=== PATIENT | female | born 1975 | race Caucasian/White ===

== ENCOUNTER → 2016-10-21 | Day surgery (SDC) | payer BC, OTHER ==
--- NOTE | 2016-10-20 18:38 | Pre-op HX & Phy Repo 2 SIG ---
DATE OF ENDOSCOPY: 10/21/2016 REASON FOR EVALUATION: The patient is scheduled for Westfall continent ileostomy pouch endoscopy on 10/21/2016 as an outpatient. HISTORY OF PRESENT ILLNESS: The patient is a 41-year-old female in overall good health who has previously undergone proctocolectomy for granulomatous colitis and subsequently creation of a Westfall continent ileostomy with several revisions. Her last procedure was in May 2013 to repair a recurrent parastomal hernia with mesh. For the past several months, the patient has had intermittent incontinence, but it is gradually increasing. She started Flagyl recently for possible pouchitis with some improvement. She has no difficulty with intubation of her pouch and intubates approximately every three to four hours during the day. OPERATIONS: See complete list at the end of this dictation. MEDICATIONS: Probiotics and control pills. ALLERGIES: Dilaudid causes severe itching. PHYSICAL EXAMINATION: On physical exam, the patient is 5 foot 8 inches and approximately 170 pounds. She is arriving from out of town, will be examined upon arrival, and dictated separately. IMPRESSION: 1. Malfunctioning Westfall continent ileostomy with incontinence, but no difficulty with intubation. 2. History of granulomatous colitis. 3. Status post multiple abdominal operations. 3.1. Proctocolectomy and Tracy ileostomy in 2004. 3.2. Westfall continent ileostomy in August 2011. 3.3. Repair of incisional hernia at original ileostomy site in April 2012 3.4. Laparotomy with revision of Westfall pouch access segment in depth November 2012 3.5. Repair of Westfall continent ileostomy parastomal hernia in February 2013 3.6. Laparotomy with revision of partially slipped Westfall pouch nipple valve March 2013 3.7. Repair of recurrent Westfall pouch parastomal hernia with collagen matrix mesh on 06/09/2013. PLAN: The patient is going to undergo endoscopy of her Westfall continent ileostomy pouch, which will not require any anesthesia or sedation. She has been through endoscopy before and understands the procedure. This will determine the cause of her incontinence and thereafter the treatment. Jeff Wong M.D. DR: MIC JOB#: [id number] CC: INES
[~2016-10-21] VITALS: Ht 177.8 cm; Wt 86.2 kg
[~2016-10-21] MED LIST: AUGMENTIN 875-1 EAC1 ORAL; IBUPROFEN800 MG PO; NKM; NORETHINDRONE0.35 MG ORAL; POTASSIUM CHLO10 ME2 PO; SODIUM CHLORIDE1 G1 PO; XANAX0.5 MG ORAL; [UNRECOGNIZED DRUG - OTHER] PO
[2016-10-21 11:14] VITALS: BP 127/74
--- NOTE | 2016-10-21 11:26 | Pre-Procedure Note/Attestation ---
Pre-Procedure Note/Attestation Complete Prior to Procedure Planned Procedure: not applicable Procedure Narrative: Westfall Continent Ileostomy pouch endoscopy Indications for Procedure Pre-Operative Diagnosis: Malfunctioning Westfall continent ileostomy with incontinence Attestation I attest that I discussed the nature of the procedure; its benefits; risks and complications; and alternatives (and the risks and benefits of such alternatives ), prior to the procedure, with the patient (or the patient's legal maintenance representative). I attest that, if there was a reasonable possibility of needing a blood transfusion, the patient (or the patient's legal maintenance representative) was given the [facility] standardized written summary, pursuant to the [place] Blood Safety Act ([place] Health and Safety Code # 1645, as amended). I attest that I re-evaluated the patient just prior to the surgery and that there has been no change in the patient's H&P, except as documented below: none MASON DANG Oct 21, 2016 11:26
--- NOTE | 2016-10-21 12:16 | Brief Operative Note ---
Immediate Post Operative Note Operative Note Pre-op Diagnosis: Malfunctioning Westfall continent ileostomy with incontinence Procedure: Westfall continent ileostomy pouch endoscopy Post-op Diagnosis: partially slipped nipple valve Post-op Diagnosis: same as pre-op Findings: consistent w/pre-op dx studies Surgeon: nuha Anesthesia: other - none Specimen: none Complications: none Condition: stable Fluids: none Estimated Blood Loss: none Drains: none Implant(s) used?: MASON Acosta Oct 21, 2016 12:16
[2016-10-21 12:20] VITALS: BP 128/68
--- NOTE | 2016-10-21 20:08 | Procedure Note ---
DATE OF PROCEDURE: 10/21/2016 ENDOSCOPY PROCEDURE REPORT ENDOSCOPIST: Jeff Wong M.D. ANESTHESIA: None. SEDATION: None. PRE-ENDOSCOPY DIAGNOSES: 1. Malfunctioning Westfall continent ileostomy with intermittent incontinence 2. History of granulomatous colitis. 3. Status post multiple abdominal operations including proctocolectomy and Tracy ileostomy in 2004, Westfall continent ileostomy in August 2011, revision of Westfall continent ileostomy valve in March 2013, and repair of parastomal hernia in May 2013. POST-ENDOSCOPY DIAGNOSES: 1. Malfunctioning Westfall continent ileostomy with intermittent incontinence 2. History of granulomatous colitis. 3. Status post multiple abdominal operations including proctocolectomy and Tracy ileostomy in 2004, Westfall continent ileostomy in August 2011, revision of Westfall continent ileostomy valve in March 2013, and repair of parastomal hernia in May 2013. ENDOSCOPY PERFORMED: Westfall continent ileostomy pouch endoscopy. FINDINGS: A partially slipped valve (5%-10%) with angulation and incontinence, but no evidence of pouchitis. DESCRIPTION OF PROCEDURE: The patient was positioned supine in the GI laboratory. Initial examination revealed her to be stable, well developed and well nourished. The abdomen is soft. Lower midline scar extends to just above the umbilicus. Stoma of the Westfall pouch is low in the right lower quadrant and well formed. There was no evidence of abdominal wall hernia. I initially inserted a 28 Fr. Johnson catheter to irrigate the pouch clear of contents, with slight resistance. Using a GIF-P140 endoscope the stoma was entered and the distance to the tip of the nipple valve was approximately 8 cm. The pouch was quite distensible and the mucosa appeared normal throughout. Retroflexed views revealed that there was a definite 5% to 10% slip of the valve near the tip with an angulation and slight resistance to insertion of the scope and catheter. Withdrawal views confirmed the above findings. I then reinserted the 28-Ethiop[place] Johnson catheter to evacuate the pouch of retained air. The patient tolerated the endoscopy well. I discussed the surgical options including laparotomy with revision of the existing pouch and valve or creation of a new valve with preservation of the pouch, possibly relocating the stoma to the left side. Jeff Wong M.D. DR: MIC JOB#: [id number] CC: INES
== END | disposition home or self-care (01) ==
LOC: GAS 10:23
DX: K94.13 Enterostomy malfunction (principal); Y83.8 Other surgical procedures as the cause of abnormal reaction of the patient, or of later complication, without mention of misadventure at the time of the procedure; Y92.89 Other specified places as the place of occurrence of the external cause; R15.9 Full incontinence of feces; Z87.19 Personal history of other diseases of the digestive system; Z88.5 Allergy status to narcotic agent

== ENCOUNTER 2017-06-10 10:25 | Day surgery (SDC) | payer BC, OTHER ==
[~2017-06-10] VITALS: Ht 177.8 cm; Wt 86.2 kg
[2017-06-10 11:09] VITALS: BP 117/73
--- NOTE | 2017-06-10 11:12 | Pre-Procedure Note/Attestation ---
Pre-Procedure Note/Attestation Complete Prior to Procedure Planned Procedure: not applicable Procedure Narrative: Westfall Continent Ileostomy Pouch Endoscopy Indications for Procedure Pre-Operative Diagnosis: Malfunctioning Westfall Continent Ileostomy Attestation I attest that I discussed the nature of the procedure; its benefits; risks and complications; and alternatives (and the risks and benefits of such alternatives ), prior to the procedure, with the patient (or the patient's legal industrial sales representative). I attest that, if there was a reasonable possibility of needing a blood transfusion, the patient (or the patient's legal industrial sales representative) was given the [facility] standardized written summary, pursuant to the [place] Blood Safety Act ([place] Health and Safety Code # 1645, as amended). I attest that I re-evaluated the patient just prior to the surgery and that there has been no change in the patient's H&P, except as documented below:none MASON DANG Jun 10, 2017 11:12
--- NOTE | 2017-06-10 11:15 | Pre-op HX & Phy Repo 2 SIG ---
PRE-ENDOSCOPY HISTORY AND PHYSICAL Scheduled for Westfall continent ileostomy pouch endoscopy on 06/10/2017. HISTORY: The patient is a 42-year-old female in overall good health with a malfunctioning Westfall type of [place] pouch continent ileostomy with recent difficulty with intubation and recurring pouchitis and dehydration. The patient underwent proctocolectomy with conventional Tracy ileostomy in 2004 for granulomatous colitis. In 2011, she underwent conversion of her malfunctioning conventional ileostomy to a Westfall continent ileostomy. She has required several revisions and last had surgery in October 2016 in [place] to correct a partially slipped valve with intermittent incontinence. Reportedly, a new valve and stoma was created with preservation of the pouch. Ever since the surgery she has noted some difficulty inserting her intubation catheter which is now becoming progressively more difficult. She is also having recurring pouchitis symptoms with watery output and cramping. She is scheduled to undergo pouch endoscopy without any anesthesia or sedation. MEDICATIONS: Probiotic and control pills and Flagyl, which has not been effective for pouchitis and recently cefdinir for pouchitis. ALLERGIES: Dilaudid causes severe pruritus. OPERATIONS: Please see complete list at the end of this dictation. PHYSICAL EXAMINATION: VITAL SIGNS: The patient is 5 foot 8 inches and approximately 170 pounds. She is arriving from out of town, will be examined upon arrival and dictated separately. IMPRESSION: 1. Malfunctioning Westfall pouch continent ileostomy with intubation difficulty and persistent pouchitis. 2. History of granulomatous colitis. 3. Status post multiple abdominal operations. 3.1. Proctocolectomy and Tracy ileostomy in 2004. 3.2. Westfall continent ileostomy August 2011. 3.3. Repair of incisional hernia at original ileostomy site April 2012 3.4. Laparotomy with revision of Westfall pouch access segment in depth November 2012 3.5. Repair of Westfall continent ileostomy parastomal hernia February 2013 3.6. Laparotomy with revision of partially slipped Westfall pouch nipple valve March 2013 3.7. Repair of recurrent Westfall pouch parastomal hernia with collagen matrix mesh May 2013 3.8. Surgery in [place] involving laparotomy and creation of new valve with preservation of Westfall pouch October 2016 DISCUSSION: The patient will undergo pouch endoscopy, which she has been through before without requiring any anesthesia or sedation. Don Lelo Wong DR: MARKY JOB#: [id number] CC: INES
[2017-06-10 11:45] LABS: BASOPHILS % (AUTO) 1.5 % (0.0-2.0); EOSINOPHILS % (AUTO) 0.6 % (0.0-3.0); LYMPHOCYTES % (AUTO) 21.9 % (20.0-45.0); MEAN CORPUSCULAR HEMOGLOBIN 28.3 PG (27.0-31.0); MEAN CORPUSCULAR HGB CONC 32.9 G/DL (32.0-36.0); MEAN CORPUSCULAR VOLUME 86 FL (80-99); MEAN PLATELET VOLUME 10.5 FL (6.5-10.1); MONOCYTES % (AUTO) 10.5 % (1.0-10.0); NEUTROPHILS % (AUTO) 65.6 % (45.0-75.0); PLATELET COUNT 292 K/UL (150-450); RED BLOOD COUNT 5.15 M/UL (4.20-5.40); RED CELL DISTRIBUTION WIDTH 11.9 % (11.6-14.8); WHITE BLOOD COUNT 6.6 K/UL (4.8-10.8)
[2017-06-10 12:06] LABS: ALANINE AMINOTRANSFERASE 32 U/L (12-78); ALBUMIN/GLOBULIN RATIO 0.9 (1.0-2.7); ANION GAP 7 mmol/L (5-15); ASPARTATE AMINO TRANSFERASE 27 U/L (15-37); CALCIUM 9.5 MG/DL (8.5-10.1); CARBON DIOXIDE 31 MMOL/L (21-32); CHLORIDE 97 MMOL/L (98-107); CREATININE 0.9 MG/DL (0.55-1.30); FERRITIN 95 NG/ML (8-388); GLOMERULAR FILTRATION RATE > 60 mL/min (>60); POTASSIUM 3.3 MMOL/L (3.5-5.1); SODIUM 135 MMOL/L (136-145); TOTAL PROTEIN 7.8 G/DL (6.4-8.2)
[2017-06-10 12:22] LABS: IRON 49 ug/dL (50-175); TOTAL IRON BINDING CAPACITY 376 ug/dL (250-450)
--- NOTE | 2017-06-10 12:27 | Brief Operative Note ---
Immediate Post Operative Note Operative Note Pre-op Diagnosis: Malfunctioning Westfall Continent Ileostomy Procedure: Westfall continent ileostomy pouch endoscopy Post-op Diagnosis: angulation of nipple valve segment of Westfall Pouch Post-op Diagnosis: same as pre-op Findings: consistent w/pre-op dx studies Surgeon: nuha Anesthesiologist: carlos Anesthesia: other - none Specimen: none Complications: none Condition: stable Fluids: none Estimated Blood Loss: none Drains: none Implant(s) used?: MASON Acosta Jun 10, 2017 12:27
[2017-06-10 12:30] VITALS: BP 119/70
--- NOTE | 2017-06-10 16:30 | Pre-op HX & Phy Repo 2 SIG ---
DATE OF ADMISSION: 06/10/2017 PRE-ENDOSCOPY HISTORY AND PHYSICAL HISTORY: Please see previously dictated history. The patient has now arrived from out of town and is examined. She provides additional history in regard to the revision of her Westfall continent ileostomy performed in October of this year in [place]. Ever since that surgery, she noticed initially intermittent difficulty inserting her catheter approximately 7 or 8 cm deep to the stoma and this has become much worse. At times, the catheter cannot enter the pouch and the tip folds over on itself making it traumatic to remove it causing some bleeding. At other times, the catheter goes directly into the pouch and at times it goes very far and almost the full length of the catheter. She has to withdraw it partially to get good drainage. The patient also states that ever since her surgery and now daily, but intermittent, she has a very sharp, sticking abdominal pain in the right mid abdomen about two inches lateral to the midline. The patient reports that during her surgery she underwent repair of upper abdominal incisional hernia. The surgery was performed through a very long transverse suprapubic incision, the details of which are not known yet. With regard to the pouchitis, the patient states that she did fine initially without any pouchitis issues, but since the beginning of April has required repeated dosing with cefdinir. She has been on Flagyl, which has not been effective for pouchitis, and she likes to avoid Cipro. She has not tried probiotics recently, but continues to have watery output. PHYSICAL EXAMINATION: GENERAL: A well developed and well nourished the patient, 5 foot 8 inches, approximately 170 pounds. ABDOMEN: Pertinent exam reveals the abdomen to be soft and nondistended. There is a midline scar from umbilicus to pubis. Apparently, the patient may have had an abdominoplasty. There is a long transverse suprapubic incision scar from iliac crest to iliac crest that was performed in October 2016 in [place]. The stoma of the Westfall continent ileostomy is just at the level of this incision low in the right lower quadrant. The patient was examined supine and standing and there is no evidence of incisional or parastomal hernia. IMPRESSION: 1. Malfunctioning Westfall pouch continent ileostomy with difficulty with intubation and persistent pouchitis. 2. History of granulomatous colitis. 3. Status post multiple abdominal operations. 3.1. Proctocolectomy and Tracy ileostomy 2004. 3.2. Westfall continent ileostomy August 2011. 3.3. Repair of incisional hernia at original ileostomy site April 2012 3.4. Laparotomy with revision of Westfall pouch access segment in depth November 2012 3.5. Repair of Westfall continent ileostomy parastomal hernia February 2013 3.6. Laparotomy with revision of partially slipped Westfall pouch nipple valve, March 2013. 3.7. Repair of recurrent Westfall pouch parastomal hernia with collagen matrix mesh, 06/09/2013. 3.8. Surgery performed in [place] in October 2016 involving laparotomy and creation of new valve and collar with preservation of Westfall pouch and repair of incisional herniae via suprapubic incision likely abdominoplasty performed. PLAN: The patient will undergo pouch endoscopy without requiring any anesthesia or sedation. Jeff Wong M.D. DR: OLYA/DOMINIK JOB#: [id number] CC: INES
--- NOTE | 2017-06-10 19:30 | Procedure Note ---
DATE OF PROCEDURE: 06/10/2017 SURGEON: Jeff Wong M.D. TYPE OF ENDOSCOPE: Westfall continent ileostomy pouch endoscopy. PRE-ENDOSCOPY DIAGNOSES: 1. Malfunctioning Westfall pouch continent ileostomy with difficulty with intubation and persistent pouchitis. 2. History of granulomatous colitis. 3. Status post multiple abdominal operations including proctocolectomy and Tracy ileostomy in 2004 followed by Westfall continent ileostomy in 2011 with several revisions, most recently in [place] in October 2016 involving laparotomy and creation of new valve with preservation of the Westfall pouch. POST-ENDOSCOPY DIAGNOSES: 1. Malfunctioning Westfall pouch continent ileostomy with difficulty with intubation and persistent pouchitis. 2. History of granulomatous colitis. 3. Status post multiple abdominal operations including proctocolectomy and Tracy ileostomy in 2004 followed by Westfall continent ileostomy in 2011 with several revisions, most recently in [place] in October 2016 involving laparotomy and creation of new valve with preservation of the Westfall pouch. ENDOSCOPY PERFORMED: Westfall continent ileostomy pouch endoscopy. FINDINGS: A marked angulation within the nipple valve segment approximately 6 cm deep to the mucocutaneous junction of the stoma. The pouch otherwise looked normal. DESCRIPTION OF PROCEDURE: The patient was positioned supine in the GI lab without any anesthesia or sedation given or required. Using a GIF-P140 endoscope, the stoma was entered and initially went directly into the pouch. The pouch was distended and the mucosa appeared normal. The afferent junction was normal as well. Retroflexed views revealed that the nipple valve had a shelf-like angulation fairly close to the tip. While visualizing this area, I could see contractions and peristalsis of the pouch, which at times would make this segment straightened and at other times would accentuate the angulation. Withdrawal views confirmed this angulation, a few centimeters proximal to the tip of the valve. The distance from the stoma to the tip of the nipple valve was approximately 8 or 9 cm. Following the procedure, I had difficulty inserting a 28-[place] Johnson into the pouch, but was able to fairly readily insert a 26-[place] Johnson catheter into the pouch and decompress it. The patient was provided both supplemental catheters. I discussed with her the need for surgical revision which will require another laparotomy with procedures required based on operative findings. The patient tolerated the endoscopy well. Don Lelo Wong DR: MIC JOB#: [id number] CC: INES
== END 2017-06-10 12:45 | disposition home or self-care (01) ==
LOC: GAS 10:25
DX: K94.13 Enterostomy malfunction (principal); K91.850 Pouchitis; Z90.49 Acquired absence of other specified parts of digestive tract; Z88.8 Allergy status to other drugs, medicaments and biological substances
CPT/HCPCS: 36415; 80053; 81025; 82607; 82728; 83540; 83550; 85025

== ENCOUNTER → 2017-12-31 | Outpatient (CLI) | payer BC, OTHER ==
[2017-12-31 08:50] LABS: BASOPHILS % (AUTO) 1.2 % (0.0-2.0); EOSINOPHILS % (AUTO) 0.2 % (0.0-3.0); HEMATOCRIT 41.6 % (37.0-47.0); HEMOGLOBIN 14.4 G/DL (12.0-16.0); LYMPHOCYTES % (AUTO) 8.7 % (20.0-45.0); MEAN CORPUSCULAR VOLUME 83 FL (80-99); MONOCYTES % (AUTO) 5.8 % (1.0-10.0); NEUTROPHILS % (AUTO) 84.1 % (45.0-75.0); PLATELET COUNT 327 K/UL (150-450); RED CELL DISTRIBUTION WIDTH 11.6 % (11.6-14.8); WHITE BLOOD COUNT 11.2 K/UL (4.8-10.8)
[2017-12-31 09:55] LABS: % IRON SATURATION 12 % (15-50); IRON 50 ug/dL (50-175); TOTAL IRON BINDING CAPACITY 432 ug/dL (250-450)
[2017-12-31 10:41] LABS: ALANINE AMINOTRANSFERASE 50 U/L (12-78); ALBUMIN 3.9 G/DL (3.4-5.0); ALBUMIN/GLOBULIN RATIO 0.8 (1.0-2.7); ALKALINE PHOSPHATASE 115 U/L (46-116); ASPARTATE AMINO TRANSFERASE 34 U/L (15-37); BILIRUBIN,TOTAL 0.7 MG/DL (0.2-1.0); BLOOD UREA NITROGEN 17 mg/dL (7-18); CALCIUM 10.4 MG/DL (8.5-10.1); CHLORIDE 76 MMOL/L (98-107); CREATININE 1.2 MG/DL (0.55-1.30); FERRITIN 133 NG/ML (8-388); SODIUM 127 MMOL/L (136-145)
--- NOTE | 2017-12-31 12:08 | Diagnostic Imaging Report ---
Indication: Abdominal pain Technique: Continuous helical transaxial imaging of the abdomen and pelvis was obtained from the lung bases to the pubic symphysis. No intravenous contrast was administered. Coronal 2-D reformats were also obtained. Automatic Exposure Control was utilized. Total Dose length Product (DLP): 917.[address] Dose Index Volume (CTDIvol): 15.91 mGy Comparison: none Findings: Lung bases are clear. Study was done with oral contrast only. No intravenous contrast given. There is contrast in the stomach and multiple loops of small bowel which appear normal in caliber. There is opacification of what appears to be pouch in the lower abdomen/pelvis seen is a somewhat thick-walled lobular structure with adjacent surgical clips. There is demonstration of an ileostomy on the right. There is no catheter within the ileostomy at this time. There is no free fluid or free air. There are small nodes within the dorsal mesenteric root nonspecific. The nodes measure in the upwards of 1 cm. A retroverted uterus is noted with the fundus in the area of the presacral space. This accessory spleen noted. No hydronephrosis seen. Gallbladder is unremarkable. IMPRESSION: Right lower quadrant ostomy and pouch noted within the lower abdomen and pelvis. Pouch fills with contrast material. No evidence of bowel obstruction, abscess or free fluid. Mesenteric nodes nonspecific in nature. Retroverted uterus Accessory spleen The CT scanner at [facility] is accredited by the [employer] and the scans are performed using dose optimization techniques as appropriate to a performed exam including Automatic Exposure control.
[2017-12-31 12:56] LABS: CARBON DIOXIDE > 45 MMOL/L (21-32); POTASSIUM 2.2 MMOL/L (3.5-5.1)
== END | disposition home or self-care (01) ==
LOC: CAT 08:26
DX: K43.2 Incisional hernia without obstruction or gangrene (principal); Z90.49 Acquired absence of other specified parts of digestive tract
CPT/HCPCS: 36415; 74176; 80053; 82728; 83540; 83550; 85025

== ENCOUNTER 2018-01-12 09:09 | Day surgery (SDC) | payer BC, OTHER ==
--- NOTE | 2018-01-11 12:15 | Pre-op HX & Phy Repo 2 SIG ---
DATE OF ENDOSCOPY: 01/12/2018 REASON FOR EVALUATION: Scheduled for Westfall continent ileostomy pouch endoscopy on 01/12/2018. HISTORY: The patient is a 42-year-old female in overall good health with difficulty with intubation of her Westfall continent ileostomy and recurrent incisional hernia. The patient has a history of granulomatous colitis. She underwent proctocolectomy with conventional ileostomy in 2004 followed by conversion to a Westfall continent ileostomy in 2011. She has had several revisions including surgery in [place] in October 2016 and June 2017. The list of operations will be at the end of this dictation. Now she states her pouch is working well, but it requires manipulation to get her 30-Lux[place]bourgish catheter into the pouch and there is some angulation. She is not having any incontinence. She also has abdominal wall bulging. MEDICATIONS: None, until recently started on Lexapro. ALLERGIES: Dilaudid and fentanyl, but morphine does not cause any reaction. OPERATION: See list at the end of this dictation. PHYSICAL EXAMINATION: VITAL SIGNS: 5 foot 8 inches, 179 pounds. HEENT: Within normal limits. LUNGS: Clear. HEART: Regular rhythm. BREASTS: Without masses. ABDOMEN: Soft with a long midline and a long transverse suprapubic scar. The stoma of her Westfall continent ileostomy is low in the right lower quadrant and small, but not stenotic. There is a bulge just above the stoma and a bulge just inferior to the umbilicus in the midline incision. EXTREMITIES: Without edema. PELVIC: Per primary care physician. RECTAL: Status post proctectomy. NEUROLOGIC: Physiologic. IMPRESSION: 1. Malfunctioning Westfall continent ileostomy with difficulty with intubation. 2. Recurrent abdominal incisional hernia x2. 3. History of granulomatous colitis. 4. Status post multiple abdominal operations. 1 Proctocolectomy and Tracy ileostomy 2004. 2 Westfall continent ileostomy August 2011. 3 Repair of incisional hernia at original ileostomy site April 2012 4 Laparotomy with revision of Westfall pouch access segment in depth November 2012 5 Repair of Westfall continent ileostomy parastomal hernia, February 2013. 6 Laparotomy with revision of partially slipped Westfall pouch nipple valve March 2013 7 Repair of recurrent Westfall pouch parastomal hernia with collagen matrix mesh 06/09/2013. 8 Surgery performed in [place] October 2016: Laparotomy with creation of new valve and collar with preservation of Westfall pouch and repair of incisional hernia and abdominoplasty. 9 Surgery in [place] June 2017: Laparotomy using transverse suprapubic incision correcting angulation of access segment x2. PLAN: The patient will undergo pouch endoscopy without requiring any anesthesia or sedation. Recommendations will be made subsequently. The patient understands pouch endoscopy and agrees to proceed. Jeff Wong M.D. DR: SANJUANITA JOB#: [id number] CC: INES
[~2018-01-12] VITALS: Ht 177.8 cm; Wt 81.6 kg
[2018-01-12] MEDS ORDERED: LEXAPRO10 MG ORAL (09:39)
[2018-01-12 09:42] VITALS: BP 116/73
[2018-01-12 10:05] LABS: BASOPHILS % (AUTO) 0.6 % (0.0-2.0); EOSINOPHILS % (AUTO) 0.1 % (0.0-3.0); HEMATOCRIT 40.1 % (37.0-47.0); HEMOGLOBIN 13.5 G/DL (12.0-16.0); LYMPHOCYTES % (AUTO) 12.4 % (20.0-45.0); MEAN CORPUSCULAR VOLUME 86 FL (80-99); MONOCYTES % (AUTO) 6.7 % (1.0-10.0); NEUTROPHILS % (AUTO) 80.2 % (45.0-75.0); PLATELET COUNT 405 K/UL (150-450); RED BLOOD COUNT 4.69 M/UL (4.20-5.40); RED CELL DISTRIBUTION WIDTH 11.7 % (11.6-14.8); WHITE BLOOD COUNT 9.4 K/UL (4.8-10.8)
--- NOTE | 2018-01-12 10:19 | Pre-Procedure Note/Attestation ---
Pre-Procedure Note/Attestation Complete Prior to Procedure Planned Procedure: not applicable Procedure Narrative: Westfall continent ileostomy pouch endoscopy Indications for Procedure Pre-Operative Diagnosis: malfunctioning Westfall continent ileostomy with difficulty with intubation Attestation I attest that I discussed the nature of the procedure; its benefits; risks and complications; and alternatives (and the risks and benefits of such alternatives ), prior to the procedure, with the patient (or the patient's legal account service representative). I attest that, if there was a reasonable possibility of needing a blood transfusion, the patient (or the patient's legal account service representative) was given the [facility] standardized written summary, pursuant to the [place] Blood Safety Act ([place] Health and Safety Code # 1645, as amended). I attest that I re-evaluated the patient just prior to the surgery and that there has been no change in the patient's H&P, except as documented below:none Jeff Wong MD January 12, 2018 10:19
[2018-01-12 10:35] LABS: ANION GAP 5 mmol/L (5-15); BLOOD UREA NITROGEN 14 mg/dL (7-18); CALCIUM 9.6 MG/DL (8.5-10.1); CARBON DIOXIDE 35 MMOL/L (21-32); CHLORIDE 92 MMOL/L (98-107); POTASSIUM 3.5 MMOL/L (3.5-5.1); SODIUM 132 MMOL/L (136-145)
--- NOTE | 2018-01-12 10:48 | Brief Operative Note ---
Immediate Post Operative Note Operative Note Pre-op Diagnosis: malfunctioning Westfall continent ileostomy with difficulty with intubation Procedure: Westfall Pouch endoscopy Post-op Diagnosis: angulation of access segment at valve junction 7-8cm into tract Post-op Diagnosis: same as pre-op Findings: consistent w/pre-op dx studies Surgeon: nuha Anesthesia: other - none Specimen: none Complications: none Condition: stable Fluids: none Estimated Blood Loss: none Drains: none Implant(s) used?: No Jeff Wong MD January 12, 2018 10:48
[2018-01-12 10:50] VITALS: BP 114/74
--- NOTE | 2018-01-12 12:15 | Procedure Note ---
DATE OF ENDOSCOPY: 01/12/2018 ENDOSCOPIST: Dr. Jeff Wong. ANESTHESIA: None. SEDATION: None. PRE-ENDOSCOPY DIAGNOSES: 1. Malfunctioning Westfall continent ileostomy with difficulty with intubation 2. Recurrent abdominal incisional hernia x2. 3. History of granulomatous colitis. 4. Status post multiple abdominal operations including proctocolectomy with Tracy ileostomy in 2004, followed by creation of Westfall continent ileostomy in 2011, with multiple revisions, most recently in [place] in October and June 2017. POST-ENDOSCOPY DIAGNOSES: 1. Malfunctioning Westfall continent ileostomy with difficulty with intubation 2. Recurrent abdominal incisional hernia x2. 3. History of granulomatous colitis. 4. Status post multiple abdominal operations including proctocolectomy with Tracy ileostomy in 2004, followed by creation of Westfall continent ileostomy in 2011, with multiple revisions, most recently in [place] in October and June 2017. ENDOSCOPY PERFORMED: Westfall continent ileostomy pouch endoscopy. FINDINGS: Mild inflammation of the pouch. Angulation of the access segment at 7 to 8 cm deep to the stoma orifice, distance to the tip of the nipple valve approximately 10 cm, the nipple valve appears somewhat borderline but there was no incontinence. DESCRIPTION OF PROCEDURE: The patient was positioned supine in the GI lab without any anesthesia or sedation given or required. I first inserted a 28-Amharic Johnson catheter into the pouch to irrigate it clear. I then inserted the GIF-P140 endoscope without difficulty. There was an angulation at 7 to 8 cm in depth and the tip of the valve was encountered at approximately 10 to 11 cm. The pouch was distensible with mild inflammation. Retroflexed views revealed the nipple valve to be somewhat flattened, but the patient was not having any incontinence. Withdrawal views revealed some traumatic ulcerations within the access segment. Following the endoscopy, I had difficulty inserting a 28-Amharic Johnson catheter past the narrowed angulated area, but a 26-Amharic Johnson went directly into the pouch. I was able to decompress it. I had a full discussion with the patient regarding the potential need for surgical revision of her pouch and repair of the recurrent incisional hernia x2. The patient tolerated the endoscopy well. Jeff Wong M.D. DR: Ailin JOB#: [id number] CC: INES
== END 2018-01-12 11:05 | disposition home or self-care (01) ==
LOC: GAS 09:09
DX: K94.13 Enterostomy malfunction (principal); K43.2 Incisional hernia without obstruction or gangrene; Z90.49 Acquired absence of other specified parts of digestive tract; Z88.6 Allergy status to analgesic agent
CPT/HCPCS: 36415; 80048; 85025

== ENCOUNTER 2018-08-19 07:37 | Inpatient (IN) | payer BC, OTHER ==
--- NOTE | 2018-08-18 17:00 | Pre-op HX & Phy Repo 2 SIG ---
SCHEDULED FOR OUTPATIENT SURGERY: August 19, 2018. 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 She also has a stenosis of the stoma which is progressing. The patient has a past history of granulomatous colitis. She underwent proctocolectomy with conventional ileostomy in 2004 followed by conversion to a Westfall continent ileostomy in 2011. She has had a number of revisions, which will be all listed in detail at the end of this dictation. She presented earlier this year with difficulty with intubation and underwent CT scan examination and pouch endoscopy. This endoscopy revealed an angulation at 7 cm deep to the mucocutaneous junction of the stoma with mild inflammation of the pouch and a borderline length nipple valve but the patient was not having any incontinence. She complained of a recurrent hernia just below the umbilicus between umbilicus and pubis in her midline incision and another cephalad to the Westfall pouch stoma. She was treated with Flagyl for pouchitis and given prescriptions for cefdinir and Cleocin as well as needed. Her difficulty with intubation has improved, but her two ventral hernias are worsening with sharp pain and gurgling sounds. She is scheduled to undergo repair of recurrent incisional hernia and repair a recurrent parastomal hernia, and revision of her stenotic stoma. MEDICATIONS: None except recently started on Lexapro. ALLERGIES: Dilaudid and fentanyl, but morphine does not cause any reaction. OPERATIONS: See list at the end of this dictation. PHYSICAL EXAMINATION: GENERAL: The patient is 5 foot 8 inches, approximately 180 pounds. HEENT: Within normal limits. LUNGS: Clear. HEART: Regular rhythm. BREASTS: Without masses. ABDOMEN: Soft with a long midline and a long transverse suprapubic scar. The stoma of the Westfall continent ileostomy is low in the right lower quadrant and stenotic. There is a reducible bulge just above the stoma and a bulge just inferior to the umbilicus in the midline incision. PELVIC: Per primary care physician. RECTAL: Status post proctectomy. EXTREMITIES: Without edema. NEUROLOGIC: Physiologic. IMPRESSION: 1. 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 History of granulomatous colitis. 3. Status post multiple abdominal operations. 3.1. Proctocolectomy and Tracy ileostomy in 2004. 3.2. Westfall continent ileostomy August 2011. 3.3. Repair of incisional hernia at original ileostomy site April 2012 3.4. Laparotomy with revision of Westfall pouch access segment in depth November 2012. 3.5. Repair of Westfall continent ileostomy parastomal hernia, February 2013 3.6. Laparotomy with revision of partially slipped Westfall pouch nipple valve March 2013. 3.7. Repair of recurrent Westfall pouch parastomal hernia with collagen matrix mesh June 09, 2013. 3.8. Surgery performed in [place] in October 2016 laparotomy with creation of new valve and collar with preservation of Westfall pouch and repair of incisional hernia without mesh and abdominoplasty. 3.9. Surgery in [place] in June 2017 laparotomy using transverse suprapubic incision to correct an angulation of the access segment x2. PLAN: The patient will undergo separate procedures to repair the recurrent midline incisional hernia below the umbilicus and the parastomal hernia. Mesh may be required in view of her past history. She will also undergo revision of her stenotic stoma. I have had a complete discussion with the patient regarding the nature of her condition, the nature of the surgery, indications, alternatives, options, and risks including bleeding, infection, injury to adjacent structures or organs, recurrence with or without mesh, need for additional operations, etc. All questions have been answered. She understands and agrees to proceed. Jeff Wong M.D. DR: Shlomo JOB#: [id number] CC: INES
[~2018-08-19] VITALS: Ht 175.3 cm; Wt 86.2 kg
[~2018-08-19 07:37] MED LIST changes: +Ampicillin/Sulbactam Sod 3 GM in NS 110 ML IVPB ONE; +LEXAPRO10 MG ORAL
[2018-08-19 08:31] VITALS: BP 116/69
[2018-08-19] MEDS ORDERED: PROBIOTIC1 EAC2 PO (08:37)
[2018-08-19] MEDS ORDERED: NORCO 10-325 T1 EACH ORAL (08:38)
--- NOTE | 2018-08-19 08:55 | Anethesia Preoperative Eval ---
Anesthesia Pre-op PMH/ROS General Date of Evaluation: Aug 19, 2018 Anesthesiologist: Markos ASA Score: ASA 3 Mallampati Score Class I : Soft palate, uvula, fauces, pillars visible Class II: Soft palate, uvula, fauces visible Class III: Soft palate, base of uvula visible Class IV: Only hard plate visible Mallampati Classification: Class II Surgeon: Judith Diagnosis: Parastomal hernia Surgical Procedure: parastomal hernia repair Anesthesia History: none Family History: no anesthesia problems Allergies: Coded Allergies: Crab (Verified Allergy, Severe, 10/21/16) DIARRHEA AND VOMITING HYDROMORPHONE (Verified Allergy, Severe, nausea/vomiting/itching, 06/10/17 ) Shrimp (Verified Allergy, Severe, 10/21/16) DIARRHEA AND VOMITING FENTANYL (Verified Adverse Reaction, Intermediate, vomitiong; itch, ) Medications: see eMAR Patient NPO?: Yes NPO Date: Aug 18, 2018 NPO Time: 2200 Past Medical History Cardiovascular: Denies: HTN, CAD, NH, valve dz, arrhythmia, other Pulmonary: Reports: other - h/o PE; Denies: asthma, COPD, VANESSA Gastrointestinal/Genitourinary: Reports: other - chrons; Denies: GERD, CRI, ESRD Neurologic/Psychiatric: Reports: depression/anxiety; Denies: dementia, CVA, TIA, other Endocrine: Denies: DM, hypothyroidism, steroids, other HEENT: Denies: cataract (L), cataract (R), glaucoma, HYDABURG (L), HYDABURG (R), other Hematology/Immune: Reports: anemia - chronic; Denies: DVT, bleeding disorder, other Musculoskeletal/Integumentary: Denies: OA, RA, DJD, DDD, edema, other PSxH Narrative: proctolectomy, brook ileostomy, BCIR, IHR Anesthesia Pre-op Phys. Exam Physician Exam Last Vital Signs Date Time Temp Pulse Resp B/P (MAP) Pulse Ox O2 Delivery O2 Flow Rate FiO2 08/19/18 08:31 98.2 85 20 116/69 (85) 100 08/19/18 08:26 Room Air Constitutional: NAD Cardiovascular: RRR Respiratory: CTA Airway Exam Mallampati Score: Class II MO: full ROM: full Anesthesia Pre-op A/P Labs see chart Urine Test Test 08/19/18 07:30 Urine HCG, Qualitative Negative (NEGATIVE) Risk Assessment & Plan Assessment: ASA III Plan: Severe electrolyte imbalance. Therefore per Dr. Wong, case will be rescheduled for tomorrow. Status Change Before Surgery: No Pre-Antibiotics Drug: Gwendolyn Jefferson MD Aug 19, 2018 08:55
[2018-08-19 09:08] LABS: BASOPHILS % (AUTO) 1.2 % (0.0-2.0); EOSINOPHILS % (AUTO) 0.1 % (0.0-3.0); HEMATOCRIT 43.3 % (37.0-47.0); HEMOGLOBIN 14.5 G/DL (12.0-16.0); LYMPHOCYTES % (AUTO) 11.7 % (20.0-45.0); MEAN CORPUSCULAR VOLUME 83 FL (80-99); NEUTROPHILS % (AUTO) 78.9 % (45.0-75.0); PLATELET COUNT 312 K/UL (150-450); RED BLOOD COUNT 5.22 M/UL (4.20-5.40); RED CELL DISTRIBUTION WIDTH 11.8 % (11.6-14.8); WHITE BLOOD COUNT 8.9 K/UL (4.8-10.8)
[2018-08-19 09:16] LABS: ANION GAP 10 mmol/L (5-15); BLOOD UREA NITROGEN 19 mg/dL (7-18); CALCIUM 9.5 MG/DL (8.5-10.1); CARBON DIOXIDE 34 MMOL/L (21-32); CHLORIDE 85 MMOL/L (98-107); SODIUM 128 MMOL/L (136-145)
[2018-08-19 09:21] LABS: POTASSIUM 2.5 MMOL/L (3.5-5.1)
--- NOTE | 2018-08-19 10:21 | General Progress Note ---
Progress Note Progress Note Patient seen in pre-op with labs this AM: Na 128 K 2.5 BUN 19 Cr 1.0 Hgb 14.5 She has had recurring difficulty with hyponatremia and hypokalemia - saw motor carrier inspector: elevated aldosterone but did not tolerate spironolactone therapy. When she takes Na and K supplements her levels become too elevated Abdomen soft, recurrent incisional hernia/weakness/protrusion rema-umbilical; hernia between prior Tracy ileostomy incision upper RLQ and Westfall Pouch stoma low in RLQ; stoma stenosis Imp. Severe electrolyte imbalance Plan; Admit for IV NS and KCL, oral KCL, and reschedule surgery for tomorrow to include revision of Westfall pouch stoma. f/u labs this evening and in AM Jeff Wong MD Aug 19, 2018 10:21
--- NOTE | 2018-08-19 10:50 | NUR ---
TRANSFERRED PT VIA GURNEY TO RM 307-2 AWAKE AND ALERT AND ORIENTED X4. SURGERY CANCELLED DUE TO LOW K2.5. DR DANG AWARE AND LEFT ADMITTING ORDERS. OR NOTIFIED OF LOW K. IV REMAINS PATENT.DENIES PAIN.
--- NOTE | 2018-08-19 11:30 | NUR ---
NURSE NOTES: received patient alert oriented with out no distress, room orientation given, call light with in reach, bed at low position, will follow up with order.
[2018-08-19] MEDS: NS w/KCl 20mEq 1,000 ML IV SCH ×2 (12:42→23:56)
--- NOTE | 2018-08-19 13:52 | NUR ---
CASE MANAGEMENT: REVIEW 43/F BIBA DIRECT ADMIT FROM HOME CC: RECURRENT INCISIONAL HERNIA . SI: CONTINENT ILEOSTOMY . PARASTOMAL HERNIA PARASTOMAL HERNIA REPAIR 08/19 T 98.2 HR 85 RR 20 BP 116/69 SAT 100% ROOM AIR NA 128 K 2.5 UA: HCG NEG IS: FLAGYL IV X1 UNASYN IV X1 INTERQUAL CRITERIA MET: PATIENT ADMITTED TO MED/SURG UNIT 08/19/2018 DCP: PATIENT IS FROM HOME
[2018-08-19 18:39] LABS: ANION GAP 5 mmol/L (5-15); BLOOD UREA NITROGEN 15 mg/dL (7-18); CALCIUM 8.8 MG/DL (8.5-10.1); CARBON DIOXIDE 37 MMOL/L (21-32); CHLORIDE 89 MMOL/L (98-107); CREATININE 0.9 MG/DL (0.55-1.30); SODIUM 130 MMOL/L (136-145)
[2018-08-19 18:41] LABS: POTASSIUM 2.7 MMOL/L (3.5-5.1)
[2018-08-19] MEDS ORDERED: HYDROcodone/Acetamin 10/325 tab ORAL PRN (19:15)
[2018-08-19] MEDS ORDERED: ALPRAZolam 0.5mg tab ORAL PRN (19:15)
--- NOTE | 2018-08-19 19:19 | NUR ---
NURSE NOTES: Patient remained safe during my shift able to intubate with out no difficulties, out put consistency normal, able to eat no nausea or abdominal pain reported. Lab drawn on scheduled time and result notified for MD. Home medication reconciled. Other nursing order placed regarding lab result communication with .
--- NOTE | 2018-08-19 19:44 | NUR ---
HAND-OFF: Report given to YVETTE Castellanos patient stable condition awake with out no distress.
[2018-08-19 20:00] VITALS: BP 103/65
--- NOTE | 2018-08-19 21:15 | NUR ---
NURSE NOTES: Patient is aox4. VSS, no signs of distress. No pain noted. Self intubations tolerated well. 40 mEq k-dur given. Restoril PO HS prn ordered per MD for sleep. Bed low, call light within reach.
[2018-08-20] VITALS (10 sets, daily range): BP systolic 93–119; BP diastolic 56–88
[2018-08-20] MEDS: Ampicillin/Sulbactam Sod 3 GM in NS 110 ML IV SCH ×5 (00:13→23:12)
[2018-08-20 05:38] LABS: BASOPHILS % (AUTO) 1.1 % (0.0-2.0); EOSINOPHILS % (AUTO) 0.8 % (0.0-3.0); HEMATOCRIT 41.1 % (37.0-47.0); HEMOGLOBIN 13.7 G/DL (12.0-16.0); LYMPHOCYTES % (AUTO) 26.1 % (20.0-45.0); MEAN CORPUSCULAR VOLUME 84 FL (80-99); MONOCYTES % (AUTO) 9.5 % (1.0-10.0); NEUTROPHILS % (AUTO) 62.6 % (45.0-75.0); PLATELET COUNT 288 K/UL (150-450); RED BLOOD COUNT 4.89 M/UL (4.20-5.40); RED CELL DISTRIBUTION WIDTH 12.3 % (11.6-14.8); WHITE BLOOD COUNT 5.3 K/UL (4.8-10.8)
[2018-08-20 06:39] LABS: ANION GAP 6 mmol/L (5-15); BLOOD UREA NITROGEN 15 mg/dL (7-18); CALCIUM 8.8 MG/DL (8.5-10.1); CARBON DIOXIDE 34 MMOL/L (21-32); CHLORIDE 96 MMOL/L (98-107); CREATININE 0.8 MG/DL (0.55-1.30); POTASSIUM 3.1 MMOL/L (3.5-5.1); SODIUM 136 MMOL/L (136-145)
--- NOTE | 2018-08-20 07:39 | NUR ---
HAND-OFF: Report given to YVETTE Hinkle. Dr. Wong made aware of patient's am labs. Gave ok for surgery today. Patient stable.
--- NOTE | 2018-08-20 07:57 | NUR ---
NURSE NOTES: During shift change patient asleep but arosable for name, reported had a good night sleep and no pain or discomfort. Patient aware regarding surgery schedule, and aware not to eat or drink will continue to follow up.
--- NOTE | 2018-08-20 11:41 | NUR ---
NURSE NOTES: RN verified with Dr. Blount if ok to give the PO potassium at 1200 before transferring patient. MD say ok to give.
[2018-08-20] MEDS ORDERED: Ampicillin/Sulbactam Sod 3 GM in NS 110 ML IV SCH (12:00)
[2018-08-20] MEDS ORDERED: NeoSporin Gu Irrig 1ml Amp IRRIG ONE (12:29)
[2018-08-20] MEDS ORDERED: Bacitracin 50000 Units Vial ONE (12:29)
[2018-08-20] MEDS: NS w/KCl 20mEq 1,000 ML IV SCH (12:55)
[2018-08-20] MEDS ORDERED: Zemuron 50mg/5ml Inj IV ONE (13:17)
[2018-08-20] MEDS ORDERED: fentaNYL 100 mcg/2 mL IV ONE (13:24)
[2018-08-20] MEDS ORDERED: Midazolam 2mg/2ml Inj ONE (13:25)
--- NOTE | 2018-08-20 13:28 | Pre-Procedure Note/Attestation ---
Pre-Procedure Note/Attestation Complete Prior to Procedure Planned Procedure: not applicable Procedure Narrative: repair recurrent incisional hernia x 2 and revision Westfall Pouch stoma stenosis Indications for Procedure Pre-Operative Diagnosis: recurrent incisional hernia x2 and Westfall continent ileostomy stoma stenosis Attestation I attest that I discussed the nature of the procedure; its benefits; risks and complications; and alternatives (and the risks and benefits of such alternatives ), prior to the procedure, with the patient (or the patient's legal advertising sales representative). I attest that, if there was a reasonable possibility of needing a blood transfusion, the patient (or the patient's legal advertising sales representative) was given the [place] Department [employer] Services standardized written summary, pursuant to the Joshua Chanda Blood Safety Act ([place] Health and Safety Code # 1645, as amended). I attest that I re-evaluated the patient just prior to the surgery and that there has been no change in the patient's H&P, except as documented below: Jeff Wong MD Aug 20, 2018 13:28
[2018-08-20] MEDS ORDERED: Propofol 200mg/20ml IV ONE (13:29)
[2018-08-20] MEDS ORDERED: Lidocaine 1% MPF 10mg/ml 5ml ONE (13:29)
[2018-08-20] MEDS ORDERED: Sterile Water Irrig 1000ml IRRIG ONE (13:30)
[2018-08-20] MEDS ORDERED: LR 1000ml ONE (13:30)
[2018-08-20] MEDS ORDERED: NS Irrig 1000ml ONE (13:30)
--- NOTE | 2018-08-20 14:08 | NUR ---
INSURANCE ALL CLINICALS AND REVIEWS FAXED TO: [facility]: ALEXANDRA P:[phone] F:[phone] REF#[id number]
[2018-08-20] MEDS ORDERED: Sodium Chloride 10ml vial INJ ONE (14:13)
[2018-08-20] MEDS ORDERED: Morphine Sulfate 10mg/ml Inj ONE (14:13)
[2018-08-20] MEDS ORDERED: Ketorolac 30mg Inj ONE (14:13)
[2018-08-20] MEDS ORDERED: Glycopyrrolate 0.2mg/ml 1ml Vial ONE (14:16)
[2018-08-20] MEDS ORDERED: LR 1000ml 1,000 ML IVLG SCH (14:22)
[2018-08-20] MEDS ORDERED: Ketorolac 30mg Inj IV PRN (14:30)
[2018-08-20] MEDS ORDERED: Metoclopramide 10mg/2ml Inj IVP PRN (14:30)
[2018-08-20] MEDS ORDERED: Meperidine 50mg/ml Inj(FOR RIGORS ONLY) IV PRN (14:30)
[2018-08-20] MEDS ORDERED: Midazolam 2mg/2ml Inj IVP PRN (14:30)
--- NOTE | 2018-08-20 14:41 | NUR ---
CASE MANAGEMENT: REVIEW SI: CONTINENT ILEOSTOMY . PARASTOMAL HERNIA PARASTOMAL HERNIA REPAIR 08/19 T 97.4 HR 67 RR 18 BP 95/57 SAT 98% ROOM AIR K 3.1 CHLOR 96 CO2 34 IS: LACTATED RINGER'S IVF Q24HR FLAGYL IV Q6HR UNASYN IV Q6HR K-DUR PO QID NS IVF @ 75ML/HR MED/SURG STATUS DCP: PATIENT IS FROM HOME
--- NOTE | 2018-08-20 15:29 | Brief Operative Note ---
Immediate Post Operative Note Operative Note Pre-op Diagnosis: recurrent incisional hernia x2 and Westfall continent ileostomy stoma stenosis Procedure: repair of recurrent incisional hernia and revision of Westfall Continent ileostomy stoma stenosis Post-op Diagnosis: same Post-op Diagnosis: same as pre-op Findings: consistent w/pre-op dx studies Surgeon: nuha Fisher Pot: jarrell Anesthesiologist: gino Anesthesia: general Specimen: yes - hernia sac; stoma scar Complications: none Condition: stable Fluids: see anesthesia record Estimated Blood Loss: minimal Drains: other - 28 Johnson to Westfall pouch Implant(s) used?: No Jeff Wong MD Aug 20, 2018 15:28
[2018-08-20] MEDS ORDERED: Morphine Sulfate 2mg/ml Inj IVP PRN (15:30)
[2018-08-20] MEDS ORDERED: LORazepam 1mg tab SL PRN ×2 (15:30)
--- NOTE | 2018-08-20 15:44 | Immediate Post-Op Evaluation ---
Immediate Post-Op Evalulation Immediate Post-Op Evalulation Procedure: Recurrent incisional hernia repair Date of Evaluation: Aug 20, 2018 Time of Evaluation: 15:43 IV Fluids: 800 Blood Products: none Estimated Blood Loss: min Urinary Output: none Blood Pressure Systolic: 107 Blood Pressure Diastolic: 64 Pulse Rate: 76 Respiratory Rate: 20 O2 Sat by Pulse Oximetry: 98 Temperature (Fahrenheit): 97.6 Pain Score (1-10): 1 Nausea: No Vomiting: No Complications none Patient Status: awake, patent, extubated, none Hydration Status: adequate Benoit Blount MD Aug 20, 2018 15:44
[2018-08-20] MEDS: DiphenhydrAMINE 50mg/ml Inj IVP PRN ×2 (15:50→19:45)
--- NOTE | 2018-08-20 16:57 | NUR ---
NURSE NOTES: Received patient from PACU transferring nurse YVETTE Goodson patient awake alert with out no distress, surgical site dressing dry and intact, Ileo connected to drainage bag will continue to monitor.
[2018-08-20] MEDS: Morphine Sulfate 4mg/ml Inj (IV/IM USE ONLY) IVP PRN ×2 (17:59→21:22)
[2018-08-20] MEDS ORDERED: DiphenhydrAMINE 50mg/ml Inj IVP PRN (18:45)
--- NOTE | 2018-08-20 19:47 | NUR ---
NURSE NOTES: Patient remained safe during my shift, reported pain one time 8/10 medication given. patient reported itching Benadryl order received from . Abdominal Binder obtained and in the room endorsed assembler 1st shift nurse to use during ambulation. no out put from ILeo after surgery flushed at 1800. PACU nurse reported emptied 325ml before transferring patient.
--- NOTE | 2018-08-20 19:56 | NUR ---
HAND-OFF: Report given to YVETTE Moreno patient stable condition.
[2018-08-20] MEDS ORDERED: DiphenhydrAMINE 50mg/ml Inj IVP SCH (20:30)
--- NOTE | 2018-08-20 21:00 | Operative Note - Dictated ---
DATE OF OPERATION: 08/20/2018 SURGEON: Jeff Wong M.D. MATERIAL HANDLER LOADER SURGEON: Brock Jimenez M.D. ANESTHESIOLOGIST: Benoit Blount M.D. TYPE OF ANESTHESIA: General endotracheal. PREOPERATIVE DIAGNOSES: 1. Recurrent incisional hernia in midline and right lower quadrant. 2. Stenosis of Westfall Continent ileostomy pouch stoma. 3. History of granulomatous colitis. 4. Status post multiple abdominal operations. 4.1. Proctocolectomy and Tracy ileostomy in 2004. 4.2. Westfall continent ileostomy in August of 2011. 4.3. Repair of incisional hernia at original ileostomy site in April of 2012. 4.4. Laparotomy with revision of Westfall pouch access segment in depth in November of 2012. 4.5. Repair of Westfall continent ileostomy parastomal hernia in February of 2013. 4.6. Laparotomy with revision of partially slipped Westfall pouch nipple valve in March of 2013. 4.7. Repair of recurrent Westfall pouch parastomal hernia with collagen matrix mesh in May of 2013. 4.8. Surgery performed in [place] in October of 2016. 4.9. Laparotomy with creation of new valve and collar with preservation of Westfall pouch and repair of incisional hernia without mesh and abdominoplasty. 4.10. Surgery performed in [place] in June of 2017 laparotomy using transverse suprapubic incision to correct an angulation of the access segment x2. POSTOPERATIVE DIAGNOSES: 1. Recurrent incisional hernia in midline and right lower quadrant. 2. Stenosis of Westfall continent ileostomy pouch stoma. 3. History of granulomatous colitis. 4. Status post multiple abdominal operations. 4.1. Proctocolectomy and Tracy ileostomy in 2004. 4.2. Westfall continent ileostomy in August of 2011. 4.3. Repair of incisional hernia at original ileostomy site in April of 2012. 4.4. Laparotomy with revision of Westfall pouch access segment in depth, November of 2012. 4.5. Repair of Westfall continent ileostomy, parastomal hernia, February 2013. 4.6. Laparotomy with revision of partially slipped Westfall pouch nipple valve in March of 2013. 4.7. Repair of recurrent Westfall pouch parastomal hernia with collagen matrix mesh in May of 2013. 4.8. Surgery performed in [place] in October of 2016. 4.9. Laparotomy with creation of new valve and collar with preservation of Westfall pouch and repair of incisional hernia without mesh and abdominal plasty. 4.10. Surgery performed in [place] in June of 2017 laparotomy using transverse suprapubic incision to correct an angulation of the access segment x2. OPERATIONS PERFORMED: 1. Repair of recurrent incisional hernia x2. 2. Revision of Westfall continent ileostomy stoma stenosis. DESCRIPTION OF PROCEDURE: The patient was taken to the operating room and with general endotracheal anesthesia and sequential compression device stockings in place and having received intravenous antibiotics, she was prepped and draped in the usual fashion. There was a bulging at the level of the umbilicus, both above and below over a 7 cm in length. There was also a reducible bulging and the right lower quadrant where prior ileostomy was performed that was opened with a transverse incision and the hernia sac excised without finding a discrete abdominal wall defect. The midline incision was reopened above the umbilicus, continuing below until the fascia was identified and as this was dissected, the loop of bowel was evident, which was bluntly dissected free of the field. The lateral and medial fascia could be grasped and it was evident that the herniation was extending subcutaneously into the upper part of the right lower quadrant. The fascia was mobilized in both directions on the external surface and underneath the fascia as well protecting the bowel. The fascial edges could be brought together without tension and no mesh was indicated. The defect was closed with interrupted inverted [id number] #1 Prolene with a very satisfactory repair. The subcutaneous tissues were closed with interrupted 3-0 Vicryl with very little space and the skin closed with stefan. The right lower quadrant incision was closed with interrupted 3-0 Vicryl and stefan as well. Antibiotic irrigation was liberally used during the procedure. Then, these 2 incisions were sealed with Tegaderm and the stoma and low in the right lower quadrant, which had been sealed with Tegaderm throughout the procedure was now addressed. A Tegaderm removed. The stenosis was primarily laterally at the 9 o'clock position. A wedge-shaped segment of scar tissue was excised and the full-thickness mucosa of the stoma readily grasped and using interrupted [id number] 2-0 chromic, the stoma was matured with a very good aperture and relief of the stenosis. A 28-Senegalese Johnson catheter was then placed into the pouch confirmed with irrigation and sutured to the skin with 2-0 silk suture and connected to a Johnson drainage bag with good drainage of effluent. Dry sterile dressings were applied to both incisions and over the stoma. Final sponge and needle counts were correct. The patient tolerated the procedure well and left the operating room in good condition. Jeff Wong M.D. DR: GEOVANNI JOB#: [id number] CC:
--- NOTE | 2018-08-20 21:07 | NUR ---
NURSE NOTES: Patient in bed, AAOx4. VSS, no N/V. Pain 5/10 anterior abdomen. IV site patent with fluids running. Ileostomy flushing well. C/o unrelieved itching. Benadryl changed to 50 mg IVP Q4h per Dr. Wong. Bed low, call light within reach.
--- NOTE | 2018-08-20 21:30 | NUR ---
NURSE NOTES: Morphine 2mg IVP given for pain 7/10 anterior abdomen. Patient awake, talkative. Will continue to monitor.
[2018-08-21] VITALS: BP_SYST 129; BP_SYST 92; BP_DIAS 53; BP_DIAS 84
[2018-08-21] MEDS: Morphine Sulfate 4mg/ml Inj (IV/IM USE ONLY) IVP PRN ×5 (01:39→20:29)
--- NOTE | 2018-08-21 02:00 | NUR ---
NURSE NOTES: Patient has not voided since return from PACU. Assisted to restroom, patient expressed that urge "went away". Bladder scanner shows [address] Wong made aware, no new orders placed.
[2018-08-21] MEDS: DiphenhydrAMINE 50mg/ml Inj IVP PRN ×5 (02:36→21:30)
[2018-08-21 04:00] VITALS: BP 94/53
[2018-08-21] MEDS: Norco 5mg/325mg tab ORAL PRN (04:48)
[2018-08-21 05:09] LABS: ANION GAP 2 mmol/L (5-15); BLOOD UREA NITROGEN 11 mg/dL (7-18); CALCIUM 8.1 MG/DL (8.5-10.1); CARBON DIOXIDE 32 MMOL/L (21-32); CHLORIDE 104 MMOL/L (98-107); CREATININE 1.1 MG/DL (0.55-1.30); POTASSIUM 4.2 MMOL/L (3.5-5.1); SODIUM 138 MMOL/L (136-145)
[2018-08-21 05:14] LABS: BASOPHILS % (AUTO) 1.9 % (0.0-2.0); EOSINOPHILS % (AUTO) 1.3 % (0.0-3.0); HEMATOCRIT 35.1 % (37.0-47.0); HEMOGLOBIN 11.7 G/DL (12.0-16.0); LYMPHOCYTES % (AUTO) 15.9 % (20.0-45.0); MEAN CORPUSCULAR VOLUME 86 FL (80-99); MONOCYTES % (AUTO) 7.6 % (1.0-10.0); NEUTROPHILS % (AUTO) 73.3 % (45.0-75.0); PLATELET COUNT 232 K/UL (150-450); RED CELL DISTRIBUTION WIDTH 12.9 % (11.6-14.8); WHITE BLOOD COUNT 7.6 K/UL (4.8-10.8)
[2018-08-21] MEDS: Ampicillin/Sulbactam Sod 3 GM in NS 110 ML IV SCH ×3 (06:04→17:09)
--- NOTE | 2018-08-21 07:30 | NUR ---
NURSE NOTES: Patient is in bed awake and able to verbalize needs. Patient is in good spirits. Patient is stable and denies SOB. Surgical dressing clean, dry, and intact. Patient in bed in locked position and call light within reach. All needs met at this time. Will continue to monitor.
[2018-08-21 08:00] VITALS: BP 92/48
--- NOTE | 2018-08-21 08:34 | NUR ---
NURSE NOTES: ICU nurse Donavan called for IV insertion Left wrist, 22 gauge. Patient tolerated well.
--- NOTE | 2018-08-21 08:35 | NUR ---
HAND-OFF: Report given to YVETTE Hernandez. Patient stable. Addendum: 08/21/18 at 0838 by JASON ZAIDI RN States she voided this morning at 0740, 100cc. David CRAWFORD aware
--- NOTE | 2018-08-21 09:01 | General Progress Note ---
Progress Note Progress Note AVSS and feels well. Required MS IV for pain. Hungry this AM. No urine output all night until this AM - 100cc. Bladder scan now shows 300cc Abdomen soft, flat, non-tender except incisional. Incisions clean, stoma pink Urine 100ml since surgery with 300cc in bladder pre scan BCIR ileo 250cc overnight WBC 7600 Hgb 11.7 Na 138 K 4.2 BUN 11 Cr up 1.1 Imp. Stable with incisional pain and low urine output Plan: Increase IV fluids BCIR diet Strict I&O Ambulate with binder on f/u labs Jeff Wong MD Aug 21, 2018 09:01
--- NOTE | 2018-08-21 09:27 | 48 Hour Post Anesthesia Eval ---
Post Anesthesia Evaluation Procedure: Recurrent incisional hernia repair Date of Evaluation: Aug 21, 2018 Time of Evaluation: 09:26 Blood Pressure Systolic: 98 0: 56 Pulse Rate: 72 Respiratory Rate: 20 Temperature (Fahrenheit): 97.6 O2 Sat by Pulse Oximetry: 98 Airway: patent Nausea: No Vomiting: No Pain Intensity: 2 Hydration Status: adequate Cardiopulmonary Status: stable Mental Status/LOC: patient returned to baseline Follow-up Care/Observations: n/a Post-Anesthesia Complications: none Follow-up care needed: N/A Benoit Blount MD Aug 21, 2018 09:27
[2018-08-21] MEDS ORDERED: D5 1/2NS w/KCl 20mEq 1,000 ML IV SCH (10:00)
[2018-08-21 12:00] VITALS: BP 113/61
--- NOTE | 2018-08-21 14:10 | NUR ---
NURSE NOTES: Patient ambulated x2 with family member. Patient tolerated activity well. Will continue to monitor.
--- NOTE | 2018-08-21 15:27 | NUR ---
NURSE NOTES: Received new orders from Dr. Wong to D/C IV fluids. Patient tolerates BCIR diet and PO fluids well. Will continue to monitor.
[2018-08-21] MEDS ORDERED: NS w/KCl 20mEq 1,000 ML IV SCH (15:31)
[2018-08-21 16:00] VITALS: BP 96/60
--- NOTE | 2018-08-21 19:24 | NUR ---
HAND-OFF: Report given to Efrain Lakhani. Patient stable.
--- NOTE | 2018-08-21 19:47 | NUR ---
NURSE NOTES: Received report from outgoing RN Maite. Pt is A&O x4. Surgical dressing dry & intact. IV RAC 20g intact & flushed. Call light in reach, bed in lowest position, side rails up x2. Will continue to monitor pt.
[2018-08-21 20:00] VITALS: BP 105/67
[2018-08-22] VITALS: BP 98/55
[2018-08-22] MEDS: Morphine Sulfate 4mg/ml Inj (IV/IM USE ONLY) IVP PRN (00:22)
[2018-08-22] MEDS: Ampicillin/Sulbactam Sod 3 GM in NS 110 ML IV SCH ×2 (00:23→05:49)
[2018-08-22 04:00] VITALS: BP 99/63
[2018-08-22] MEDS: DiphenhydrAMINE 50mg/ml Inj IVP PRN (05:28)
[2018-08-22] MEDS: Norco 5mg/325mg tab ORAL PRN (05:48)
[2018-08-22 05:56] LABS: BASOPHILS % (AUTO) 0.7 % (0.0-2.0); EOSINOPHILS % (AUTO) 4.4 % (0.0-3.0); HEMATOCRIT 33.5 % (37.0-47.0); HEMOGLOBIN 11.2 G/DL (12.0-16.0); LYMPHOCYTES % (AUTO) 16.5 % (20.0-45.0); MEAN CORPUSCULAR VOLUME 85 FL (80-99); MONOCYTES % (AUTO) 5.3 % (1.0-10.0); NEUTROPHILS % (AUTO) 73.2 % (45.0-75.0); PLATELET COUNT 209 K/UL (150-450); RED BLOOD COUNT 3.95 M/UL (4.20-5.40); RED CELL DISTRIBUTION WIDTH 12.5 % (11.6-14.8); WHITE BLOOD COUNT 6.8 K/UL (4.8-10.8)
[2018-08-22 06:29] LABS: ANION GAP 1 mmol/L (5-15); BLOOD UREA NITROGEN 7 mg/dL (7-18); CALCIUM 8.2 MG/DL (8.5-10.1); CARBON DIOXIDE 27 MMOL/L (21-32); CHLORIDE 108 MMOL/L (98-107); CREATININE 0.8 MG/DL (0.55-1.30); POTASSIUM 4.1 MMOL/L (3.5-5.1); SODIUM 136 MMOL/L (136-145)
--- NOTE | 2018-08-22 06:46 | NUR ---
NURSE NOTES: Pt's ileo flushed per MD's order. IV site infiltrated and changed to r.hand 20g. Antibiotics tolerated well. I&Os measured and documented. Needs attended. Pt is stable.
--- NOTE | 2018-08-22 07:42 | NUR ---
NURSE NOTES: Received report from Efrain Humphrey RN. Patient a/o x4 and having breakfast. Surgical dressing site is dry and intact. Ileostomy bag is patent. Patient in stable condition. Bed in lowest position and call light within reach. Will continue to monitor.
[2018-08-22 08:00] VITALS: BP 91/49
--- NOTE | 2018-08-22 08:30 | NUR ---
NURSE NOTES: Dr. Wong removed ileostomy catheter. No active bleeding noted at this time. Will continue to monitor.
--- NOTE | 2018-08-22 08:43 | General Progress Note ---
Progress Note Progress Note AVSS doing well eating and now good urine output. Pain controlled with Issue Abdomen soft, incisions clean x 2 Stoma with edema but pink Urine 5400 BCIR ileo 1290 WBC 6800 Hgb 11.2 Na 138 K 4.1 BUN 7 Cr 0.8 Imp. Doing well Plan: BCIR ileo catheter removed Patient to intubate x 1 and if satisfactory will be discharged this morning Instructions/limitations/supplies provided/discussed Rx Issue 5/325 #24 f/u office 10 days for staple removal Jeff Wong MD Aug 22, 2018 08:43
--- NOTE | 2018-08-22 09:26 | NUR ---
NURSE NOTES: Remove IV. Patient did intubating x1 tolerating well.
--- NOTE | 2018-08-22 09:40 | NUR ---
NURSE NOTES: Patient tolerating well with intubating but did not measure amount. Notified to Dr. Wong and said it is okay to d/c.
--- NOTE | 2018-08-22 10:00 | NUR ---
NURSE NOTES: Belongings checked with the patient and discharge instruction was given. Patient in stable condition. Discharged accompanied by spouse.
--- NOTE | 2018-08-25 11:01 | Discharge Summary ---
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 She also has a stenosis of the stoma which is progressing. The patient has a past history of granulomatous colitis. She underwent proctocolectomy with conventional ileostomy in 2004 followed by conversion to a Westfall continent ileostomy in 2011. She has had a number of revisions, which will be all listed in detail at the end of this dictation. She presented earlier this year with difficulty with intubation and underwent CT scan examination and pouch endoscopy. This endoscopy revealed an angulation at 7 cm deep to the mucocutaneous junction of the stoma with mild inflammation of the pouch and a borderline length nipple valve but the patient was not having any incontinence. She complained of a recurrent hernia just below the umbilicus between umbilicus and pubis in her midline incision and another cephalad to the Westfall pouch stoma. She was treated with Flagyl for pouchitis and given prescriptions for cefdinir and Cleocin as well as needed. Her difficulty with intubation has improved, but her two ventral hernias are worsening with sharp pain and gurgling sounds. She is scheduled to undergo repair of recurrent incisional hernia and repair a recurrent parastomal hernia, and revision of her stenotic stoma. Procedures s/p 08/20/[address] Wong 1. Repair of recurrent incisional hernia x2. 2. Revision of Westfall continent ileostomy stoma stenosis. Hospital Course patient admitted for elective surgery patient started on IV hydration with saline solution ; potassium supplement ( oral and additives to IV fluids) provided patient was kept NPO after midnight patient subsequently undergone surgery on 08/20 course of recovery was uneventful pain management was addressed , and pain was controlled strict intake and output maintained labs were closely monitored patient slowly started on BCIR diet as tolerated antiemetic were on board as needed patient was encouraged to ambulate with abdominal binder on patient was able to tolerate diet the next day BCIR ileo catheter was removed patient was satisfactory intubated herself , oain was controlled patient was stable for discharge home. electrolyte imbalances resolved : sodium 138 from initial 128 , potassium 4.1 from initial 2.5 discharge instructions/limitations/supplies provided/discussed Rx [place] 5/325 #24 provided follow up with surgeon as outpatient in office in 10 days for staple removal FINAL DIAGNOSES 1. 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 History of granulomatous colitis. 3. Status post multiple abdominal operations. 3.1. Proctocolectomy and [place] ileostomy in 2004. 3.2. Westfall continent ileostomy August 2011. 3.3. Repair of incisional hernia at original ileostomy site April 2012 3.4. Laparotomy with revision of Westfall pouch access segment in depth November 2012. 3.5. Repair of Westfall continent ileostomy parastomal hernia, February 2013 3.6. Laparotomy with revision of partially slipped Westfall pouch nipple valve March 2013. 3.7. Repair of recurrent Westfall pouch parastomal hernia with collagen matrix mesh June 09, 2013. 3.8. Surgery performed in [place] in October 2016 laparotomy with creation of new valve and collar with preservation of Westfall pouch and repair of incisional hernia without mesh and abdominoplasty. 3.9. Surgery in [place] in June 2017 laparotomy using transverse suprapubic incision to correct an angulation of the access segment x2. 4.s/p repair of recurrent incisional hernia and revision of Westfall Continent ileostomy stoma stenosis 5. Electrolyte imbalance ( hyponatremia, hypokalemia), resolved Discharge Medications Continued Medications: Alprazolam* (Xanax*) 0.5 Mg Tablet 0.25 TAB ORAL PRN, TAB (This prescription has been renewed) Escitalopram Oxalate* (Lexapro*) 10 Mg Tablet 5 MG ORAL DAILY, TAB Hydrocodone Bit/Acetaminophen 10-325* ([place] 10-325*) 1 Each Tablet 1 TAB ORAL Q6H PRN for For Pain, #10 TAB 0 Refills (This prescription has been renewed) PRN PAIN Ibuprofen* (Motrin*) 800 Mg Tablet 800 MG PO TID, #30 TAB Lactobacillus Acidophilus (Probiotic) 1 Each Capsule 2 EACH PO DA, CAP (This prescription has been renewed) Discharge Condition Upon Discharge: stable Discharge Disposition Patient was discharged to Home () Discharge Instructions Discharge Instructions Special Instructions I have been assigned to complete a D/C Summary on this account. I was not involved in the patient management Abbey Don NP Aug 25, 2018 11:01
== END 2018-08-22 10:00 | disposition home or self-care (01) | DRG 349 ==
LOC: SUR 07:37 → 3E 10:09
PROC: 0WQF0ZZ Repair Abdominal Wall, Open Approach (ICD-10-PCS; principal; 2018-08-20 13:00)
PROC: 0WQFXZ2 Repair Abdominal Wall, Stoma, External Approach (ICD-10-PCS; principal; 2018-08-20 13:00)
DX: K94.13 Enterostomy malfunction (principal); Y83.3 Surgical operation with formation of external stoma as the cause of abnormal reaction of the patient, or of later complication, without mention of misadventure at the time of the procedure; K43.2 Incisional hernia without obstruction or gangrene; Z87.19 Personal history of other diseases of the digestive system; Z88.6 Allergy status to analgesic agent
CPT/HCPCS: 36415; 80048; 81025; 85025; 94003; 94150; J2250; J2405; J2765; J8499